=== PATIENT | male | born 1955 | race African-American/Black ===

== ENCOUNTER 2024-02-29 13:32 | Outpatient (CLI) | payer MEDICARE | END 2024-02-29 13:33 | disposition home or self-care (01) | LOC: MRI 13:32 | PROVIDERS: ATTEND Nurse Practitioner Family | DX: M54.12 Radiculopathy, cervical region (principal); M48.02 Spinal stenosis, cervical region; M48.03 Spinal stenosis, cervicothoracic region; M25.78 Osteophyte, vertebrae; M53.9 Dorsopathy, unspecified | CPT/HCPCS: 72141 ==